=== PATIENT | male | born 1995 | race Caucasian/White ===

== ENCOUNTER 2024-11-29 11:43 | Emergency (ER) | payer OTHER, SELFPAY ==
[2024-11-29 11:47] VITALS: BP 128/77; PULSE 87; TEMP 36.9; O2SAT 96; BMI 24.5
--- NOTE | 2024-11-29 12:58 | ED_ITS ---
HPI HPI - General Adult General Chief complaint: Urogenital-Male Stated complaint: URGENTILE MALE DISCOMFORT , BLEEDING Time Seen by Provider: 11/29/24 11:52 Source: patient Mode of arrival: walk-in History of Present Illness HPI narrative: The patient is a 29-year-old male who is coming to the ER after he observed bleeding after having an erection almost within the last hour, the patient mentioned that he recently was started by his urologist on Tadafil daily 5 mg The patient bleeding was controlled he does not have any pain at the moment and he also does not have any erection at the moment Related Data Allergies Allergy/AdvReac Type Severity Reaction Status Date / Time acetaminophen Allergy Severe gilbert Verified 11/29/24 11:50 syndrome Opioid HPI Opioid Management Most Recent Opioid Data: Last Pain Scale 2 11/29/24 12:03 11/29/24 Review of Systems ROS Status of ROS 10 or more systems reviewed and unremark able except as noted in history and below PFSH PFSH Social History Little interest or pleasure in doing things: not at all Feeling down, depressed, or hopeless: not at all Exam Narrative Exam Narrative: Nurses notes and vital signs reviewed and patient is not hypoxic. General: Well-appearing and in no apparent distress. Skin: Warm, dry, no pallor noted. No rash. Head: Normocephalic, atraumatic. Neck: Supple, non-tender Penile examination was done with the caring nurse as lead auditor: The patient have a small abrasion at the glans penis, that is showing bleeding controlled with mild pressure, there is no erection and there is another abrasion just below that and the patient urethra is intact The abrasion is superficial not deep not exposing the underlying structures and no dehiscence Constitutional Vital Signs, click to edit/add: Last Vital Signs Temp 98.4 F 11/29/24 11:47 Pulse 87 11/29/24 11:47 Resp 18 11/29/24 11:47 BP 128/77 11/29/24 11:47 Pulse Ox 96 11/29/24 11:47 Course Vital Signs Vital signs: Vital Signs Temperature 98.4 F 11/29/24 11:47 Pulse Rate 87 11/29/24 11:47 Respiratory Rate 18 11/29/24 11:47 Blood Pressure 128/77 11/29/24 11:47 Pulse Oximetry 96 11/29/24 11:47 Temperature 98.4 F 11/29/24 11:47 Pulse Rate 87 11/29/24 11:47 Respiratory Rate 18 11/29/24 11:47 Blood Pressure 128/77 11/29/24 11:47 Pulse Oximetry 96 11/29/24 11:47 Medical Decision Making MDM Narrative Medical decision making narrative: I spoke with the urologist on-call Dr. Nguyen and discussed the case with her she agree right now the patient is to stop taking his Tadafil daily and start taking only as needed from normal He is also to abstain from sexual activity for the next 2 weeks Just keep pressure applied to the area The patient to follow-up with urology within the week for further evaluation management The patient is to follow up with primary care physician in next 2-3 days or to return to the emergency department should any of the signs or symptoms worsen or new symptoms develop. The patient agrees with the following Diagnosis and Treatment plan and the patient will be discharged home. Discharge Plan Discharge Chief Complaint: Urogenital-Male Clinical Impression: Abrasion of penis Patient Disposition: Home, Self-Care Time of Disposition Decision: 12:32 Condition: Good Print Language: Swedish Instructions: Abrasion (ED) Additional Instructions: please abstain from sexual activity for 2 weeks and dont take radafil except for PRN in future Referrals: SHIN GOMEZ [Primary Care Provider] - 1 week Discharge Date/Time: 11/29/24 12:50
== END 2024-11-29 12:50 | disposition home or self-care (01) ==
PROVIDERS: Emergency Provider Emergency Medicine; PCP Internal Medicine
DX: S30.812A Abrasion of penis, initial encounter (principal); X58.XXXA Exposure to other specified factors, initial encounter
CPT/HCPCS: 99281

== ENCOUNTER 2025-06-23 08:12 | Outpatient (OUT) | payer OTHER, SELFPAY ==
--- NOTE | 2025-06-23 08:18 | US_ITS ---
The [address] [address] Patient Name: OBED PALMER MRN: [id number] date: 1995 Sex: M Assigned Patient Location: Current Patient Location: Accession/Order Number: [id number] Exam Date: 06/23/2025 08:33 Report Date: 06/23/2025 09:29 At the request of: SABRINA CHA MD Procedure: US scrotum SCROTAL ULTRASOUND WITH DUPLEX IMAGING CLINICAL DATA: Spermatocele, varicocele COMPARISON: None The right testis measures 4.5 x 1.7 x 3.1 cm. The left testis measures 4.8 x 2.0 x 2.5 cm. There is normal echogenicity. No intratesticular masses are identified. There is documentation of bilateral duplex and color Doppler testicular blood flow. The epididymal heads are similar in size. There is a cyst at the right epididymal head measuring 13 x 17 x 18 mm. There are mildly prominent vessels lateral to the testis on each side with increased blood flow with Valsalva suggesting possible varicoceles. There is a tiny right hydrocele. US/US scrotum IMPRESSION: NO INTRATESTICULAR MASS OR TORSION. RIGHT EPIDIDYMAL CYST. POTENTIAL BILATERAL VARICOCELES. Impression dictated by: Noris Mena M.D. 06/23/2025 9:29 AM Dictation Location: [place] [address] Electronically authenticated by: [id number] Y Date: 06/23/2025 09:29
--- OUTSIDE RECORDS SUMMARY | 2025-06-23 08:20 | XMS_ITS | CCD ---
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 08/02/2022 Recorded SARS-CoV-2 (COVID-19) mRNA-1273 vaccine 02/15/2021 Recorded 2024-11-24: TPVALL SARS-CoV-2 (COVID-19) mRNA-1273 vaccine 01/18/2021 Recorded 2024-11-24: TPV17 influenza virus vaccine, inactivated 08/04/2020 Recorded Normal [facility] Comment on above: Result Comment: Elec tronically Signed By: ANGELINA WARE PA-C\.br\Date and Time Signed: 02/23/25 10:17 EDT Ambulatory Visit Summaryon 0 12-09-2024 Ambulatory Visit Summary Ambulatory Visit Summary EMILIA ROACH :1995 Visit Date:12/09/2024 Ambulatory Visit Instructions Your Diagnosis ED (erectile dysfunction) Your Care Team Attending Physician - ANGELINA WARE PA-C Primary Care Physician - SHIN GOMEZ MD This Is Your Medications List tadalafil (Cialis 2.5 mg oral tablet) Procedures Performed None. Discharge Vitals Temperature (Temporal Artery) 37 ???C Heart Rate (Peripheral) 75 Respiratory Rate 16 Blood Pressure 124/77 Height 180 cm Height 71 in Weight 80 kg Weight 176.37 lb BMI 24.69 What to do next Scheduled Follow-Up Appointments Sunday 9:40 AM EDT With: ANGELINA WARE PA-C Where: [facility] [address] [place] [address]- You Need to Schedule the Following Appointments Follow Up with JEANIE BARTH, HERMILO VENTURA When: In 3 months Where: [address] [place] [address] Medications What How Much When Instructions Changed tadalafil (Cialis 2.5 mg oral tablet) 1 Tablets By Mouth Every 72 hours Duration: 30 Days Pickup at [facility] #[id number] Pharmacy Information [facility] #[id number]: [address], [place] [id number] [phone] Allergies acetaminophen (Jaundice due to ABO isoimmunization of the ) Problems Ongoing - Any problem that you are currently receiving treatment for. 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 Please share your experience with us by completing your survey. We appreciate your feedback and thank you for choosing us for your care. Education Materials Erectile Dysfunction Erectile dysfunction (ED) is the inability to get or keep an erection in order to have sexual intercourse. ED is considered a symptom of an underlying disorder and is not considered a disease. ED may include: ??? Inability to get an erection. ??? Lack of enough hardness of the erection to allow penetration. ??? Loss of erection before sex is finished. What are the causes? This condition may be caused by: ??? Physical causes, such as: ? Artery problems. This may include heart disease, high blood pressure, atherosclerosis, and diabetes. ? Hormonal problems, such as low testosterone. ? Obesity. ? Nerve problems. This may include back or pelvic injuries, multiple sclerosis, Parkinson's disease, spinal cord injury, and stroke. ??? Certain medicines, such as: ? Pain relievers. ? Antidepressants. ? Blood pressure medicines and water pills (diuretics). ? Cancer medicines. ? Antihistamines. ? Muscle relaxants. ??? Lifestyle factors, such as: ? Use of drugs such as marijuana, cocaine, or opioids. ? Excessive use of alcohol. ? Smoking. ? Lack of physical activity or exercise. ??? Psychological causes, such as: ? Anxiety or stress. ? Sadness or depression. ? Exhaustion. ? Fear about sexual performance. ? Guilt. What are the signs or symptoms? Symptoms of this condition include: ??? Inability to get an erection. ??? Lack of enough hardness of the erection to allow penetration. ??? Loss of the erection before sex is finished. ??? Sometimes having normal erections, but with frequent unsatisfactory episodes. ??? Low sexual satisfaction in either partner due to erection problems. ??? A curved penis occurring with erection. The curve may cause pain, or the penis may be too curved to allow for intercourse. ??? Never having nighttime or morning erections. How is this diagnosed? This condition is often diagnosed by: ??? Performing a physical exam to find other diseases or specific problems with the penis. ??? Asking you detailed questions about the problem. ??? Doing tests, such as: ? Blood tests to check for diabetes mellitus or high cholesterol, or to measure hormone levels. ? Other tests to check for underlying health conditions. ? An ultrasound exam to check for scarring. ? A test to check blood flow to the penis. ??? Doing a sleep study at home to measure nighttime erections. How is this treated? This condition may be treated by: ??? Medicines, such as: ? Medicine taken by mouth to help you achieve an erection (oral medicine). ? Hormone replacement therapy to replace low testosterone levels. ? Medicine that is injected into the penis. Your health care provider may instruct you how to give yourself these injections at home. ? Medicine that is delivered with a short applicator tube. The tube is inserted into the opening at the tip of the penis, which is the opening of the urethra. A tiny pellet of medicine is put in the urethra. The pellet (more content not included)... Normal [facility] Urology Office/Clinic Noteon 12-09-2024 Urology Office/Clinic Note Urology Office/Clinic Note Chief Complaint F/u to [facility] ED visit for bleeding with erection HPI Staff 29yr old male pt here for ER f/u. Pt seen in ER on 11/29/24 for bleeding after erection. Pt had small abrasion at glans penis. Previous Dx: ED *was prescribed Cialis 5mg qd at last OV - take only PRN after ER visit Dysuria: denies Incomplete bladder emptying: not at all Hematuria: pt states that he got a small tear during intercourse and had visible blood on his penis but not from his urine Frequency: less than 1 in 5x Urgency: denies Nocturia: 1x Stream: denies weak, straining and intermittency Leaking: denies Post void dripping: denies Wearing pads/ Depends: denies Urge incontinence: denies Stress incontinence: denies Incontinence without Sensory Awareness: denies Abdominal pain: denies Flank pain: denies Sexual complaints: denies Review of Systems PHQ Score Initial Depression Screen Score: 0 SCORE Physical Exam Vitals & Measurements T: 37 ???C(Temporal Artery) HR: 75(Peripheral) RR: 16 BP: 124/77 HT: 71 in HT: 180 cm WT: 80 kg WT: 176.37 lb BMI: 24.69 Assessment/Plan 1. ED (erectile dysfunction) (N52.9: Male erectile dysfunction, unspecified) Last seen IO 11/24/24. I started Cialis 5mg daily. After a few doses he was able to achieve erection on his own. After a couple more doses he was able to achieve erection with partner and have intercourse. However he injured his penis, sustaining a couple abrasions which wouldn't stop bleeding. Went to [facility] ER 11/29/24. Resolved w holding pressure. Pt has not resumed Cialis since ER. Says area is about 90% healed. Prefers not to go to PRN dosing, like the option for spontaneity w regular dosing. Will decrease dose and timing. -Decrease Cialis to 2.5mg q72hrs. -Don't resume intercourse until injuries completely healed. Ordered: E&M of Est. 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 Medications Cialis 2.5 mg oral tablet, 2.5 mg= 1 tab(s), Oral, q72hr, 2 refills Allergies acetaminophen (Jaundice due to ABO isoimmunization of the ) Social History Tobacco Former smoker, quit more than 30 days ago Tobacco Use:. Never Smokeless Tobacco Use:. Cigarettes, Household tobacco concerns: No. Yes, 12/09/2024 Family History Alcoholism: Grandparent. Lung cancer: Grandparent. Pancreatic cancer: Uncle. Psychiatric behavioural disability: Mother, Father and Uncle. Immunizations Vaccine Date Status Comments influenza virus vaccine, inactivated 07/25/2024 Recorded influenza virus vaccine, inactivated 08/02/2023 Recorded influenza virus vaccine, inactivated 08/02/2022 Recorded SARS-CoV-2 (COVID-19) mRNA-1273 vaccine 02/15/2021 Recorded 2024-11-24: TPVALL SARS-CoV-2 (COVID-19) mRNA-1273 vaccine 01/18/2021 Recorded 2024-11-24: TPV17 influenza virus vaccine, inactivated 08/04/2020 Recorded Lab Results Ambulatory Point of Care Results Bilirubin Urine Dipstick: Negative (12/09/24 11:00:00) Blood Urine Dipstick: Negative (12/09/24 11:00:00) Glucose Urine Dipstick: Negative (12/09/24 11:00:00) Ketones Urine Dipstick: Negative (12/09/24 11:00:00) Leukocytes Urine Dipstick: Negative (12/09/24 11:00:00) Nitrite Urine Dipstick: Negative (12/09/24 11:00:00) Protein Urine Dipstick: Negative (12/09/24 11:00:00) Specific [place] Urine Dipstick: 1.025 (12/09/24 11:00:00) Urine Appearance Urine Dipstick: Clear (12/09/24 11:00:00) Urine Color Urine Dipstick: Yellow (12/09/24 11:00:00) Urobilinogen Urine Dipstick: Normal 0.2-1 EU/dl (12/09/24 11:00:00) pH Urine Dipstick: 5.5 (12/09/24 11:00:00) Normal [facility] Comment on above: Result Comment: Elec tronically Signed By: ANGELINA WARE PA-C\Date and Time Signed: 12/09/24 12:03 EST Urology Office/Clinic Noteon 11-24-2024 Urology Office/Clinic Note Urology Office/Clinic Note Chief Complaint ED follow up HPI Staff 29 year old male patient here for follow up to ED. Pt is not taking any ED medication. FARAZ: 8, IPSS: 3 Dysuria: denies Incomplete bladder emptying: denies Hematuria: denies Frequency: depends on intake, but usually urinates 2-3 hours. Urgency: denies Nocturia: once a night Stream: denies hesitancy, denies weak stream Leaking: denies Post void dripping: denies Wearing pads/ Depends: denies Urge incontinence: denies Stress incontinence: denies Incontinence without Sensory Awareness: denies Abdominal pain: denies Flank pain: denies Sexual complaints: _ Review of Systems PHQ Score Initial Depression Screen Score: 0 SCORE Physical Exam Vitals & Measurements HR: 71(Peripheral) RR: 16 BP: 115/75 HT: 71 in HT: 180 cm WT: 80 kg WT: 176.37 lb BMI: 24.69 Assessment/Plan 1. ED (erectile dysfunction) (N52.9: Male erectile dysfunction, unspecified) Tried penile ring several times without satisfactory results. FARAZ 8 (8). Today we discussed all treatment options for ED including oral medications, erectile pumps, intracorporeal injection, and surgical options. We reviewed all of his contributing factors including those that are within his control to change and those which are not. Pt has decided that he would like to try oral medications - risks/benefits, side effects,interactions, and proper use discussed -Cialis 5mg daily. If working really well, can try reducing to QOD dosing. -F/u 3 mos Ordered: E&M of Est. Patient Moderate 30-39 Min 26988 Urnls Dip Stick Auto w/o Microscopy POC 07540 Orders: tadalafil, 5 mg = 1 tab(s), Oral, Daily, X 30 day(s), # 30 tab(s), Refills(s) 11, Pharmacy: [facility] #[id number], 180, cm, 11/24/24 12:10:00 EST, Height/Length Dosing, 80, kg, 11/24/24 12:10:00 EST, Weight Dosing Follow-up With When Contact Information JEANIE BARTH, ANGELINA Harris, URL In 3 months [address] [place] 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 Medications Cialis 5 mg oral tablet, 5 mg= 1 tab(s), Oral, Daily, 11 refills Allergies acetaminophen (Jaundice due to ABO isoimmunization of the ) Social History Tobacco Former smoker, quit more than 30 days ago Tobacco Use:. Never Smokeless Tobacco Use:. Cigarettes, Household tobacco concerns: No. Yes, 11/24/2024 Family History Alcoholism: Grandparent. Lung cancer: Grandparent. Pancreatic cancer: Uncle. Psychiatric behavioural disability: Mother, Father and Uncle. Immunizations Vaccine Date Status Comments influenza virus vaccine, inactivated 07/25/2024 Recorded influenza virus vaccine, inactivated 08/02/2023 Recorded influenza virus vaccine, inactivated 08/02/2022 Recorded SARS-CoV-2 (COVID-19) mRNA-1273 vaccine 02/15/2021 Recorded 2024-11-24: TPVALL SARS-CoV-2 (COVID-19) mRNA-1273 vaccine 01/18/2021 Recorded 2024-11-24: TPV17 influenza virus vaccine, inactivated 08/04/2020 Recorded Lab Results Ambulatory Point of Care Results Bilirubin Urine Dipstick: Negative (11/24/24 12:21:00) Blood Urine Dipstick: Negative (11/24/24 12:21:00) Glucose Urine Dipstick: Negative (11/24/24 12:21:00) Leukocytes Urine Dipstick: Negative (11/24/24 12:21:00) Nitrite Urine Dipstick: Negative (11/24/24 12:21:00) Protein Urine Dipstick: Trace (11/24/24 12:21:00) Specific [place] Urine Dipstick: 1.020 (11/24/24 12:21:00) Urine Appearance Urine Dipstick: Clear (11/24/24 12:21:00) Urine Color Urine Dipstick: Yellow (11/24/24 12:21:00) Urobilinogen Urine Dipstick: Normal 0.2-1 EU/dl (11/24/24 12:21:00) pH Urine Dipstick: 7 (11/24/24 12:21:00) Normal [facility] Comment on above: Result Comment: Elec tronically Signed By: ANGELINA WARE PA-Cbr\Date and Time Signed: 11/24/24 12:42 EST Physical Therapy Noteon Physical Therapy Note [id number]#1.[address] [facility] [place] [facility] Provider Orders [id number]#1.0 0[facility] Coding Summaryon 03-25-2021 Coding Summary HTMLBase 64 FbellepvNHy8vEr+PGhlYW Q+UX8OELWuW26xjZQutB1H N0bKCJ1UWGSABLMAYF9WCO 3sxJN3QYhxL8KhwdMl CsmrjQLbPE41VUd0KUS5sS ioUNdqaR3hhECzB6x4QlMc IE06vX33PQreBNByQlU4Ch ZpbjsgbWFy E7xkAnWguKThGze+PHRhYm xlIHdpZHRoPScxMDAlJyBz mLkbJT9yCa0mPPMmTWOhtK xhcHNlOiBj r3vcDBGkTLivBG2mnClaZ8 UgwFE8DSBkv3i7Wc51iIW+ JEPcQQZ3mYihARxjc562Pv Eau4klPTI8 vZYcOIpjGHP1P02em8P0MW RfJSBsDJH0uMO0fF0jnHhq prkfE0DvvONbEsG4SVI2tY QgeM6oiVgf vqwszC0xNgi+L47ECX1PQD OTZQ5GVce5Z9TrAkmtgHP+ XE30QAFdTB72zQWebSDau4 dzfAf4JxDo RSEuTKE4jEdnHVvdb7MwSS QkW35apRPdu9I6AOOdzQhh kZKhLbWsdDF0aD0uIGldke uik3usfvnp Ixnxe7azes02nM15W29gCB hiELTwEEA2CHFxOPHbjXdt rb7zuM0sPl2+UMwqs5hxj8 fsgNl4GqHa LHIvjxScmLtlCTP7t5SzVe 40X7UvcIiug6YcIuy2xu04 bEFay0V1oOQ2XHltYSWjpN 8bSRvxMnE6 ZCBqYiMvpC48iBLrCWwlXy 8hnVkfqQzkWO4dBBJgebyn ESLszO8gBZFjdPHcfEswRK 4wNTBpbjtm g292WeIlTSZ2XRLgwRYmK8 DdqZ4wNmEoAARvLWGuR1Pv aJQiBYoaF917BFwmKyU1CX MhpxHnH6Oe CPWycFirNfU6l1Z1Km1Of6 RcxmpbSLL9JRvcXNT9HtN6 XtXqZuW9Q3GbYvs2IBNxbS enRO3mV1Kx YNArraaxlxtyoMV6SCIyNM CyyR63yOSdAGyaLa9se4G4 t255BZUhUSZduE83Qr0tuW ogMTBwdCBU uF0jlnpdz4vbffbiKqFvOD CfMMi7CLz4MYTklIwdZeCg NVK1ShJ2TYV5vDGrcZ4msH cljrjhwL8n Oyc+X55ctN5cEAG2SBZ7ja aqOJLjupDnWG51UD26S7Pz PjwvdGFibGU+PGRpdiBzdH azPV0yUyLo q0pne5ZlGJhiR8GtLZQyTE sdSzu4AQQuLSQ1eJW7kU9c TVXxRRtsm2G5lQI0N1Lxae Yyjc1ys7ag MGQrKObuD13ccPTxn5M5HZ FudBJ8DYXpzZqoZoWmkW07 Oyc+VFYlrCkhi3UuNggdz5 wgl2rylGy6 PhNtENTwqbPasPahVCR0l8 HbNz76M63tIIimCFLmMUJe IOZlIOBtuAtgrc4mdB6wCx 8+PGNvbCB3 pUQ8iA8sXZQpWbP9NYfqL7 35IgFghYKtKoqwm2tvo8ao pIb2CbRsGFSjqyJmrNtzUN A0t7YfXl68 H62xVLpeHZFbWHUqXXDoBH UpqOzzcf1mxI8kDb8+PC9j e5atet35jB82zVB+PHRkIH Q1uKarDYmh ERSnmW8hUIrpEzW6VHRlFh KbjX35oUUuWDtaJv6ecFoa pFkqFL0tDBDvzgwwp906Uk Pfj2cxKYOl lNHzJZeuPCI6C18as6L2BL HpNLEpCCR7fYM8zF9tvVcf bjogbGVmdDsgdmVydGljYW cgAPysO758 IHRvcDsnPlBhdGllbnQgTm AoAMg9O5QoTvx1GCGpsDiv VX0akSLzYTitMp3wlFapzJ ssKJ8yCGLn vyyji111RrRas6loOGZtnG MaZVddKIJ6R79dj1M7IUIa HTJdLUS0jWK4dD1exLiuyh ogbGVmdDsg ucMswHzbCGngQMhnE339YD RvcDsnPkJpcnRoIERhdGU6 WZ96FS39zTRwt8A3cJB1Z2 BhZGRpbmct cwcssRS0IRYuYKGhhS70Ks 5nfJlfFs1vDPUsXRI8PZWo wBAeM7ZzdY0gYyBhKUEyKE ClT6ElhCHy VYbtG961CVglBiR2PYCcjw EzZ0YnOFRkcYpfJfE5c9O8 Gd2PW6E9HT67VY21pDVgj7 F9rWL5G1Gu WXAwedphjdbauGO6JWXmTN ErjR84Zg5waVtyUg6mYQTw FYG2KVWjmZXlU6LzqL9lTx AjMDAwMDAw M1VmnLGpEElmY703PNghLc F9BMVfoiRpZ6QlOLCfwAyj NrQ3z0B5My8YNZj7UQ56LL 25vVPbl6V3 dPR6J6QqGZWodhnombkfzV Y0GERpLMZewM73Wl8noFej Wm0oGAYtJDM7RDLwzNBaF0 NbfF0dZaMl MDLlMNXaI0DrbOHeOSkiO9 07WKzzGuH8WKGgaeEuJ3Fu DMIisTflOlF7c9C4Pl9OSG HvYO21TRC1 fFI1OA75JR92Z9EtKigijB FibGU+PHRhYmxlIHdpZHRo CCixXEQwHmImaWdoMK1zIl 9yZGVyLWNv qChssYQtQtYdc5euSCAaJE pbEL1rnUsjP7HpmDC4VCYy y7p4Ov31I78mD0JeiLC+PG ZxuXD3vTL2 fI6oLgNnWmR3NExlG058Kt UsjIBpJynls2tgr3humDo3 OfV8NBQblmEdeUegYQX3o1 WfKg11Y56w IHdpZHRoPSIxNSUiIHZhbG qmfk2dmG6mBs8+PGNvbCB3 kWG1bR4rDkQvRcC7MNupJ5 49InRvcCIv Pieca2xxw4mjeGu0LeFeWY VkkvWztZctIIW0f9ZuCh93 K3TahFmvz0JjUxo8sc30iA Xoe0F5mBG2 X3YpFNSivmrlbVSvxGiiNI 9pVNSavlhsYSDeeO1lUFYr V5z9SdJfKvG2DCdbU9Gyvm P0XJDogHQt BUlsJBS5J11ng5P3SNNsEP WpKDJ6eUB2wO6dhKsvdcvh bGVmdDsgdmVydGljYWwtYW ukG218NLUv qFrmNETctO7qYXXgfUMgkO rxBB5vXBLvcivbOy4PRXnW TCwgQVNIRSBIQVpFTjwvdG Q+PHRkIHN0 rLsmICyvNVXepG7hHFWzV0 u2FhSfBqJ5BDhjX8MuTAPv tffgFx98kS6nMgTgCgF0MT txZ2UophM0 MEEphXQyZTqtWMB4V27dy7 K8OQYxTNDmPAB6hLY0gJ0z bGlnbjogbGVmdDsgdmVydG ljYWwtYWxp M715XZEpbRcdBbW6LrR9Wy B1LEH5D4KsYfu8HFRgvMtk ZC7dxWBhLRfsAw3epGkcjB tdBO8eDCRv nglpUCKulM3hUXJlzTUafI msWM8qBDFwyaoxa399DqRo GJC1KHWwnZZiI9XoyJ4iCs AjMDAwMDAw N9TrjTScPLcaE543FFtgZj R9QNAmsfKrN2OgLMJkaFvs JhP2o7N3Uq2rVFAETBZpth wvdGQ+PHRk OCG0xYptNGgeUITqeK8jFC CfK8n9KjMaJyF8HNhsJ7Ut ARFmwdcoRz84bL5xCcKaOr T7DPblB5Mz ykD5RXZbjKNuJHewRZW5H9 5ux8W5VTXnOEMfDQE1iHY6 lK9hmMhzjhzxuVWjoOydkh VydGljYWwt SAzpF231QZAniAifPb0OFF A3P9YgRpp0STWrbDokKL8k xZPlGEuhOh4iiCkwoWtzXQ 4wNTBpbjtw LSJcqB9qFVXjdJRkvMpbVH 3nHDZhjgrxb444HgPeFJC3 MGQjoRPpL7GplM6bEgSzKY FrHYEjV6Gn zRQnQXdeC865HLgjVkG0CB AelgYwB8MuXTTyvTbmBeV5 b2Q5Bo5PHNA8ptOipwqeD0 G7lBU1eBPr dDwvdGQ+PI07ty84Z7RkCm ouWdj7LZIhGRU8dLO5tM7v ZMSfYZpit3I2mIT6W2Fysj Ijcd2tf2hd NPRoFVmvC74khEYrz3V0AO RfjFU6CXBphOruQhHktK17 Oyc+VCWjiHjxj8IwUhulf4 rtp8eapPw2 AjMbQZQobcGgyYjaGWQ3d8 TmBu18H81mKJirGMIrKDWu NPYbNHCkhEhbgv9liP8eYb 8+PGNvbCB3 bLT2hW2mFnVqIhY1XBkdX4 39LiSagYNmPwfrb9uig1lc tMo4XrVmQUXzloFkuZzaAZ I2t1PmUw53 Z2TvsLvyu0BlFkd9ac85dA Tlb6P2wNU3W8BeCVAxopai jOBbhBzaWP0hWVDcqmoeTQ DqiH0zMVVr A0u0GnVdChQ3HLguC6Jnbt C7QGYgfJThYCCbuAKUiW7f oveid2yvfehcAjFxJXSoPB c3ALg2QKRt kAmbTjGsVIN0ZuI2BBN1bS HtbX1ooUdxxkepdG6bBeq+ OEq5i0zqsYMwRN6cdNW6AS 02RZ07kCGn l5C9zNR8L5OsCRXqmxysmt ocpWU1FFFaEBVydA10Dz5j zMeoUu7aJKVjXEO3KOGqsR YqM6NiqO8c LcUyMBWuMJCjM1TbwFVbJT cuB870DIxzUaI1PQIzwrRa T7RaYWEhiJvuRiF9s0Z6Nj 7RPA82KU93 HA90dZWaj9O1gUP0P9ErRB XtxoimddvxsEK3YFMbKXWc jI32Ut1ltYlbDs3rKIHwXL L3TDArnCPo N7UcaM9mSoOjGXBpPBGuK9 RjvWFoKHvwH914PRznWzW4 RNIfqbWzM0DvCVFjrLmmJu I2v7K4Qb7Q Ji89SI11ZA47xBMnf4O9lT W0W2AqPKVkqsdnwuraeGW2 QLQdOYVpbY84Nw3maXugAi 6iVSRqOSA9 UCMecHUkG6GocG9iLuHlIS GvHNBpW2OrtKPsZCzxZ360 EShaWgW1SBXupcZyV8SqFA FsaWduOiB0 m7C2Kk0WRKyqlbe0H5JkHi wvdHI+VH34EUSvSF60nLNz rXCxb4yunVa0GzOoSFTpDU J6dWovGMeh b3J (more content not included)... [facility] Provider [place] 03-22-2021 Provider Orders [id number]#1.[address] [facility] [place] 02-14-2021 Provider Orders [id number] 0[facility] Vital Signs Date Time Vital Sign Value Performing Clinician Faci lity 12-09-2024 10:55-0500 Blood Pressure Location ANGELINA JEANIE [facility] 12-09-2024 10:55-0500 Body temperature 98.6 [degF] ANGELINA JEANIE [facility] 12-09-2024 10:55-0500 Diastolic blood pressure 77 mm[Hg] ANGELINA JEANIE [facility] 12-09-2024 10:55-0500 Heart rate 75 /min ANGELINA JEANIE [facility] 12-09-2024 10:55-0500 Respiratory rate 16 /min ANGELINA JEANIE [facility] 12-09-2024 10:55-0500 Systolic blood pressure 124 mm[Hg] ANGELINA JEANIE [facility] 11-24-2024 12:07-0500 Diastolic blood pressure 75 mm[Hg] ANGELINA JEANIE [facility] 11-24-2024 12:07-0500 Heart rate 71 /min ANGELINA JEANIE [facility] 11-24-2024 12:07-0500 Respiratory rate 16 /min ANGELINA JEANIE [facility] 11-24-2024 12:07-0500 Systolic blood pressure 115 mm[Hg] ANGELINA JEANIE [facility] 06-19-2024 10:59-0400 Blood Pressure Location ANGELINA JEANIE [facility] 06-19-2024 10:59-0400 Body temperature 98.6 [degF] ANGELINA JEANIE [facility] 06-19-2024 10:59-0400 Diastolic blood pressure 84 mm[Hg] ANGELINA WARE [facility] 06-19-2024 10:59-0400 Heart rate 65 /min ANGELINA WARE [facility] 06-19-2024 10:59-0400 Respiratory rate 16 /min ANGELINA WARE [facility] 06-19-2024 10:59-0400 Systolic blood pressure 115 mm[Hg] ANGELINA WARE [facility] Encounters Encounter Date Encounter Type Care Provider Facility Start: 02-23-2026 ambulatory ANGELINA WARE Facili ty:[facility] Start: 12-14-2025 ambulatory Timothy HADDAD Facili ty:[facility] Start: 06-19-2025 End: 06-19-2025 ambulatory Timothy HADDAD Facility:[facility] Start: 06-19-2025 End: 06-19-2025 Patient encounter procedure Timothy Galina HADDAD [facility] Start: 06-15-2025 End: 06-15-2025 ambulatory Timothy HADDAD Facility:[facility] Start: 06-15-2025 End: 06-15-2025 Patient encounter procedure Timothy HADDAD [facility] Start: 06-05-2025 End: 06-05-2025 ambulatory [facility] Start: 05-08-2025 End: 05-08-2025 ambulatory [facility] Start: 04-20-2025 ambulatory LUANNE Burns [facility] Start: 04-20-2025 End: 04-20-2025 ambulatory NAHEED Angel [facility] Start: 04-10-2025 End: 04-10-2025 ambulatory NAHEED Angel [facility] Start: 02-27-2025 End: 02-27-2025 ambulatory NAHEED Angel [facility] Start: 02-23-2025 End: 02-23-2025 ambulatory ANGELINA E JEANIE Facility:[facility] Start: 01-30-2025 End: 01-30-2025 ambulatory NAHEED Angel [facility] Start: 01-23-2025 End: 01-23-2025 Emergency department patient visit [facility] Start: 01-02-2025 End: 01-02-2025 ambulatory NAHEED Angel [facility] [place] Start: 12-09-2024 End: 12-09-2024 ambulatory ANGELINA WARE Facility:[facility] Start: 12-09-2024 End: 12-09-2024 Patient encounter procedure ANGELINA E JEANIE [facility] Start: 11-28-2024 End: 11-28-2024 ambulatory NAHEED Angel [facility] [place] Start: 11-24-2024 End: 11-24-2024 ambulatory ANGELINA SIMONRY Facility:[facility] Start: 11-24-2024 End: 11-24-2024 Patient encounter procedure ANGELINA E JEANIE [facility] Start: 10-31-2024 End: 10-31-2024 ambulatory NAHEED Angel [facility] [place] Start: 10-01-2024 End: 10-01-2024 ambulatory NAHEED Angel [facility] [place] Start: 09-08-2024 End: 09-08-2024 ambulatory NAHEED W [facility] [place] Start: 08-20-2024 End: 08-20-2024 Telephone encounter Becca Somers RN [facility] Call [facility] er Comment on above: Cancel Appointment Start: 08-04-2024 End: 08-04-2024 ambulatory NAHEED Angel [facility] [place] Start: 07-21-2024 End: 07-21-2024 ambulatory NAHEED Angel [facility] [place] Start: 07-07-2024 End: 07-07-2024 ambulatory NAHEED Angel [facility] [place] Start: 06-25-2024 End: 06-25-2024 ambulatory NAHEED Angel [facility] [place] Start: 06-19-2024 End: 06-19-2024 Patient encounter procedure ANGELINA WARE [facility] Start: 04-23-2024 End: 04-23-2024 ambulatory SHIN GOMEZ Not Available Procedures Date Procedure Procedure Detail Performing Clinician Start: 06-25-2024 Follow-up visit Follow-up NAHEED RAMIRES None (qualifier value) [facility]HER WARE Plan of Treatment Date Care Activity Detail Author Start: 12-03-2024 Tobacco Screening Tobacco Screening [facility] Start: 09-17-2024 Adult BMI Screening Adult BMI Screen ing [facility] Start: 06-22-2024 COVID-19 Vaccine ( season) COVID-19 Vaccine ( season) [facility] Start: 2014 DTaP,Tdap and Td Vaccines (1 - Tdap) DTaP,Tdap and Td Vaccines (1 - Tdap) [facility] Start: 2007 Depression Screening Depression Scre ening [facility] Immunizations Immunization Date Immunization Notes Care Provider Makeda rivero 07-25-2024 influenza virus vaccine, unspecified formulation ANGELINA WARE [facility] 08-02-2023 influenza virus vaccine, unspecified formulation ANGELINA WARE [facility] 08-02-2022 influenza virus vaccine, unspecified formulation ANGELINA WARE [facility] 02-15-2021 COVID-19, mRNA, LNP- S, PF, 100mcg/0.5mL Dose Becca Somers RN [facility] Comment on above: Result Comment: 2024: TPVALL 01-18-2021 COVID-19, mRNA, LNP- S, PF, 100mcg/0.5mL Dose Becca Somers RN [facility] Comment on above: Result Comment: 2024: [id number] 08-04-2020 influenza virus vaccine, unspecified formulation ANGELINA WARE [facility] Payers Date Payer Category Payer Worker's Compensation [id number] 2023 Private Health Insurance [facility] [id number] 2023 Unknown [id number] 2023 Worker's Comp Other Managed Care [employer] [id number] 2020 Commercial Managed [facility] [place] [employer] Member Subscriber Plan / Payer (Effective 2020-Present) Name: Emilia Roach Relation to Subscriber: Self Name: Emilia Roach Payer ID: Not on file Type: Not on file Address: [place] [id number] 2020 Unknown [id number] 1995 Unknown [id number] 2.16840.1.628842.3.579 .2.9 1995 Unknown [id number] 2.16840.1.108039.3.579 .2.1285 1995 Unknown [id number] 2.0.1.723471.3.579 .2.1285 1995 Unknown [id number] 2.16840.1.702092.3.579 .2.1285 1995 Unknown [id number] 2.16840.1.461597.3.579 .2.1285 1995 Unknown [id number] 2.16840.1.336690.3.579 .2.1285 1995 Unknown [id number] 2.0.1.040746.3.579 .2.1285 1995 Unknown [id number] 2.16840.1.345376.3.579 .2.1285 1995 Unknown [id number] 2.16840.1.859770.3.579 .2.1285 1995 Unknown [id number] 2.16840.1.683799.3.579 .2.1285 1995 Unknown [id number] 2.16840.1.108444.3.579 .2.1285 1995 Unknown [id number] 2.16.840.1.036504.3.579 .2.6 1995 Unknown [id number] 2.16.840.1.115177.3.579 .2.1285 1995 Unknown [id number] 2.16.840.1.732498.3.579 .2.1285 1995 Unknown [id number] 2.16.840.1.803961.3.579 .2.1285 1995 Unknown [id number] 2.16.840.1.513954.3.579 .2.1285 1995 Unknown [id number] 2.16.840.1.810578.3.579 .2.1285 1995 Unknown [id number] 2.16.840.1.074771.3.579 .2.1285 1995 Unknown [id number] 2.16.840.1.650763.3.579 .2. 1995 Unknown [id number] 2.16.840.1.108671.3.579 .2.72 1995 Unknown [id number] 2.16.840.1.267699.3.579 .2. 1995 Unknown [id number] 2.16.840.1.934469.3.579 .2. 1995 Unknown [id number] 2.16.840.1.536429.3.579 .2. 1995 Unknown [id number] 2.16.840.1.549380.3.579 .2. 1995 Unknown [id number] 2.16.840.1.213133.3.579 .2.727 Social History Date Type Detail Facility Start: 06-19-2024 End: 06-19-2025 Tobacco smoking status Ex-smoker (finding) [facility] Tobacco smoking status Never [facility] Start: 11-23-2020 End: 12-03-2023 Sex Assigned At Male [facility] Start: 09-17-2023 Tobacco smoking stat us NHIS Never smoked tobacco [facility] Start: 09-17-2023 Tobacco use and exposure Smoke less tobacco non-user [facility] Start: 12-03-2023 Alcoholic beverage intake Ex-drinker (finding) [facility] Start: 11-23-2020 End: 12-03-2023 History of Social function [facility] Start: 1995 Sex assigned at Male P [facility] Start: 12-04-2019 Sex Male (finding) [facility] Start: 12-12-2022 Gender identity Identifies as male gender (finding) [facility] Sexual Orientation [facility] Functional Status Date Assessment Result Facility 12-09-2024 Functional Status N/A [facility] 11-24-2024 Functional Status N/A [facility] 06-19-2024 Functional Status N/A [facility] Clinical Notes 03-24-2021 to 06-19-2025 Telephone Encounter - Becca Somers RN - 08/20/2024 8:05 AM EDTTelephone Encounter - Becca Somers RN - 08/20/2024 8:05 AM EDT Note Date & Type Note Facility 06-19-2025 Hospital Discharg e instructions Patient Education 06/19/2025 09:01:58 Varicocele Varicocele A varicocele is a swelling of veins in the scrotum. The scrotum is the sac that contains the testicles. Varicoceles can occur on either side of the scrotum, but they are more common on the left side. They occur most often in teenage boys and young men. In most cases, varicoceles are not a serious problem. They are usually small and painless and do not require treatment. Tests may be done to confirm the diagnosis. Treatment may be needed if: A varicocele is large, causes a lot of pain, or causes pain when exercising. Varicoceles are found on both sides of the scrotum. A varicocele causes a decrease in the size of the testicle in a growing adolescent. A varicocele makes it hard to get someone (infertility). What are the causes? This condition is caused by valves in the veins not working properly. Valves in the veins help to return blood from the scrotum and testicles to the heart. If these valves do not work well, blood flows backward and backs up into the veins, which causes the veins to swell. This is similar to what happens when varicose veins form in the leg. What are the signs or symptoms? Most varicoceles do not cause any symptoms. If symptoms do occur, they may include: Swelling on one side of the scrotum. The swelling may be more obvious when you are standing up. A lumpy feeling in the scrotum. A heavy feeling on one side of the scrotum. A dull ache in the scrotum, especially after exercise or prolonged standing or sitting. Slower growth or reduced size of the testicle on the side of the varicocele. This happens in young males. Infertility. This can occur if the testicle does not grow normally or if the condition causes problems with the sperm, such as a low sperm count or sperm that are not able to reach the egg. How is this diagnosed? This condition is diagnosed based on: Your medical history. A physical exam. Your health care provider may check and feel the scrotum area to check for swollen or enlarged veins. An ultrasound. This may be done to confirm the diagnosis and to help rule out other causes of the swelling. How is this treated? Treatment is usually not needed for this condition. If you have any pain, your provider may give you medicine to help relieve it. Your provider may need to do tests to make sure that your varicocele does not cause problems. If further treatment is needed, you may have one of these procedures: Varicocelectomy. This is surgery to tie off the swollen veins so that the flow of blood goes to other veins instead. Embolization. This procedure uses a soft tube (catheter) to place metal coils or other devices to block the veins. This cuts off the blood flow to the swollen veins. Follow these instructions at home: Take chtj-nnm-fwrmgoh and prescription medicines only as told by your provider. Wear supportive underwear. Use an athletic supporter when doing sports activities. Contact a health care provider if: Your pain is increasing. You have redness in the affected area. Your testicle is enlarged, swollen, or painful. You have swelling that does not get better when you are lying down. One of your testicles is smaller than the other. You develop swelling in your legs. Get help right away if: You have difficulty breathing. This symptom may be an emergency. Get help right away. Call 911. Do not wait to see if the symptom will go away. Do not drive yourself to the hospital. This information is not intended to replace advice given to you by your health care provider. Make sure you discuss any questions you have with your health care provider. Document Revised: 07/04/2023 Document Reviewed: 07/04/2023 [employer] Patient Education 2023 [employer]. 06/19/2025 08:43:31 Male Infertility Male Infertility Male infertility refers to a male's inability to get a female (get her to conceive) after a year of having sex regularly without using control. Both males and females can have fertility problems. What are the causes? This condition may be caused by: Problems with sperm. Infertility can result if a male is: ?Not producing enough sperm (low sperm count). ?Not producing enough sperm of normal size and shape (poor sperm morphology). ?Producing sperm that are not able to reach the egg (poor motility). Problems in a man's reproductive organs, such as: ?Enlarged veins (varicoceles), cysts (spermatoceles), or tumors of the testicles. ?Sexual dysfunction, including not being able to have an erection. ?Injury to the testicles. ?Having had a testicle that did not drop to its location in the scrotum (undescended testicle). ?A defect, such as not having the tubes that carry sperm (vas deferens). ?A lack of certain hormones. Certain medical conditions. These may include: ?Diabetes. ?Cancer and cancer treatments, such as chemotherapy or radiation. ?Klinefelter syndrome. This is an inherited genetic disorder. ?Thyroid problems, such as an underactive or overactive thyroid. ?Cystic fibrosis. ?Infections. ?Sexually transmitted diseases. Infertility can be linked to more than one cause. The cause of infertility in some men is not known. This is called unexplained infertility. What increases the risk? Age. A male's fertility declines with age. Using products that contain nicotine or tobacco. Excessive alcohol use. Obesity. Emotional stress. Exposure of the testicles to heat, such as frequent use of a hot tub or sauna. Using drugs such as anabolic steroids, cocaine, and marijuana. Being exposed to environmental toxins, such as pesticides and lead. What are the signs or symptoms? The main sign of infertility in males is the inability to get a female to conceive. How is this diagnosed? This condition may be diagnosed using: Semen analysis tests to check sperm count, morphology, and motility. Blood tests to check hormone levels. Ultrasound of the scrotum to check for a varicocele or problems with the testicles. Transrectal ultrasound to check the prostate gland and to look for problems with the tubes that transport the semen (seminal vesicles). Taking a small sample of tissue from inside a testicle to look at it under a microscope (biopsy). Blood tests to check for genetic abnormalities (genetic testing). To be diagnosed with infertility, both partners will have a physical exam and tell their health care providers about their medical and sexual histories. Additional tests may be done. How is this treated? Treatment depends on the cause of infertility. Most cases of infertility in males are treated with medicine, surgery, or lifestyle changes. Treatment may include: Taking medicines. Medicines may: ?Correct hormone problems. ?Treat other health conditions. ?Treat infections. ?Treat sexual dysfunction. Having surgery. You may have surgery to: ?Remove blockages in the reproductive tract. ?Correct other structural problems of the reproductive tract. Making lifestyle changes. These changes may include: ?Reducing alcohol use or not drinking alcohol. ?Stopping use of drugs such as anabolic steroids, cocaine, and marijuana. ?Losing weight. ?Stopping smoking. ?Using stress reduction techniques. If other treatments do not work, your health care provider may recommend assisted reproductive technology (ART). ART refers to all treatments and procedures that combine eggs and sperm outside the body to try to help a couple conceive. ART may be effective for infertility caused by sperm problems including low sperm count and low motility. Examples of ART include intrauterine insemination and in vitro fertilization. Follow these instructions at home: Lifestyle If you drink alcohol, limit how much you have to 0 2 drinks a day. Do not use any products that contain nicotine or tobacco. These products include cigarettes, chewing tobacco, and vaping devices, such as e-cigarettes. If you need help quitting, ask your health care provider. Make changes to your diet if needed to lose weight or maintain a healthy weight. Work with your health care provider and a dietitian to set a weight-loss goal that is healthy and reasonable for you. Practice stress reduction techniques that work well for you, such as regular physical activity, meditation, or deep breathing. General instructions Take bmwm-uvm-ktuezus and prescription medicines only as told by your health care provider. Seek support from a counselor or support group to talk about your concerns related to infertility. Couples counseling may be helpful for you and your partner. Keep all follow-up visits. This is important. Contact a health care provider if you: Feel that stress is interfering with your life and relationships. Have side effects from treatments for infertility. Summary Male infertility refers to a male's inability to get a female (get her to conceive) after a year of having sex regularly without using control. To be diagnosed with infertility, both partners will have a physical exam and tell their health care providers about their medical and sexual histories. Seek support from a counselor or support group to talk about your concerns related to infertility. Couples counseling may be helpful for you and your partner. This information is not intended to replace advice given to you by your health care provider. Make sure you discuss any questions you have with your health care provider. Document Revised: 06/07/2022 Document Reviewed: 06/07/2022 [employer] Patient Education 2023 [employer]. Follow Up Care 06/15/2025 14:22:24 With:STARLA OWENS, Timothy Mojica, URL Address: [address] [place], [place] [id number]- When: Unknown [facility] 06-19-2025 Note Patient Education Urology Varicocele A varicocele is a swelling of veins in the scrotum. The scrotum is the sac that contains the testicles. Varicoceles can occur on either side of the scrotum, but they are more common on the left side. They occur most often in teenage boys and young men. In most cases, varicoceles are not a serious problem. They are usually small and painless and do not require treatment. Tests may be done to confirm the diagnosis. Treatment may be needed if: ??? A varicocele is large, causes a lot of pain, or causes pain when exercising. ??? Varicoceles are found on both sides of the scrotum. ??? A varicocele causes a decrease in the size of the testicle in a growing adolescent. ??? A varicocele makes it hard to get someone (infertility). What are the causes? This condition is caused by valves in the veins not working properly. Valves in the veins help to return blood from the scrotum and testicles to the heart. If these valves do not work well, blood flows backward and backs up into the veins, which causes the veins to swell. This is similar to what happens when varicose veins form in the leg. What are the signs or symptoms? Most varicoceles do not cause any symptoms. If symptoms do occur, they may include: ??? Swelling on one side of the scrotum. The swelling may be more obvious when you are standing up. ??? A lumpy feeling in the scrotum. ??? A heavy feeling on one side of the scrotum. ??? A dull ache in the scrotum, especially after exercise or prolonged standing or sitting. ??? Slower growth or reduced size of the testicle on the side of the varicocele. This happens in young males. ??? Infertility. This can occur if the testicle does not grow normally or if the condition causes problems with the sperm, such as a low sperm count or sperm that are not able to reach the egg. How is this diagnosed? This condition is diagnosed based on: ??? Your medical history. ??? A physical exam. Your health care provider may check and feel the scrotum area to check for swollen or enlarged veins. ??? An ultrasound. This may be done to confirm the diagnosis and to help rule out other causes of the swelling. How is this treated? Treatment is usually not needed for this condition. If you have any pain, your provider may give you medicine to help relieve it. Your provider may need to do tests to make sure that your varicocele does not cause problems. If further treatment is needed, you may have one of these procedures: ??? Varicocelectomy. This is surgery to tie off the swollen veins so that the flow of blood goes to other veins instead. ??? Embolization. This procedure uses a soft tube (catheter) to place metal coils or other devices to block the veins. This cuts off the blood flow to the swollen veins. Follow these instructions at home: ??? Take tefm-hay-byzvsvg and prescription medicines only as told by your provider. ??? Wear supportive underwear. ??? Use an athletic supporter when doing sports activities. Contact a health care provider if: ??? Your pain is increasing. ??? You have redness in the affected area. ??? Your testicle is enlarged, swollen, or painful. ??? You have swelling that does not get better when you are lying down. ??? One of your testicles is smaller than the other. ??? You develop swelling in your legs. Get help right away if: ??? You have difficulty breathing. This symptom may be an emergency. Get help right away. Call 911. ??? Do not wait to see if the symptom will go away. ??? Do not drive yourself to the hospital. This information is not intended to replace advice given to you by your health care provider. Make sure you discuss any questions you have with your health care provider. Document Revised: 07/04/2023 Document Reviewed: 07/04/2023 [employer] Patient Education ? 2023 [employer] Male Infertility Male infertility refers to a male's inability to get a female (get her to conceive) after a year of having sex regularly without using control. Both males and females can have fertility problems. What are the causes? This condition may be caused by: ??? Problems with sperm. Infertility can result if a male is: ? Not producing enough sperm (low sperm count). ? Not producing enough sperm of normal size and shape (poor sperm morphology). ? Producing sperm that are not able to reach the egg (poor motility). ??? Problems in a man's reproductive organs, such as: ? Enlarged veins (varicoceles), cysts (spermatoceles), or tumors of the testicles. ? Sexual dysfunction, including not being able to have an erection. ? Injury to the testicles. ? Having had a testicle that did not drop to its location in the scrotum (undescended testicle). ? A defect, such as not having the tubes that carry sperm (vas deferens). ? A lack of certain hormones. ??? Certain medical cond (more content not included)... [facility] 04-08-2025 Hospital Discharg e instructions Follow Up Care 04/08/2025 09:47:30 With:STARLA OWENS, Timothy Mojica, URL Address: [address] [place] [id number] When: Unknown [facility] 02-23-2025 Note Patient Education Urology Erectile Dysfunction Erectile dysfunction (ED) is the inability to get or keep an erection in order to have sexual intercourse. ED is considered a symptom of an underlying disorder and is not considered a disease. ED may include: ??? Inability to get an erection. ??? Lack of enough hardness of the erection to allow penetration. ??? Loss of erection before sex is finished. What are the causes? This condition may be caused by: ??? Physical causes, such as: ? Artery problems. This may include heart disease, high blood pressure, atherosclerosis, and diabetes. ? Hormonal problems, such as low testosterone. ? Obesity. ? Nerve problems. This may include back or pelvic injuries, multiple sclerosis, Parkinson's disease, spinal cord injury, and stroke. ??? Certain medicines, such as: ? Pain relievers. ? Antidepressants. ? Blood pressure medicines and water pills (diuretics). ? Cancer medicines. ? Antihistamines. ? Muscle relaxants. ??? Lifestyle factors, such as: ? Use of drugs such as marijuana, cocaine, or opioids. ? Excessive use of alcohol. ? Smoking. ? Lack of physical activity or exercise. ??? Psychological causes, such as: ? Anxiety or stress. ? Sadness or depression. ? Exhaustion. ? Fear about sexual performance. ? Guilt. What are the signs or symptoms? Symptoms of this condition include: ??? Inability to get an erection. ??? Lack of enough hardness of the erection to allow penetration. ??? Loss of the erection before sex is finished. ??? Sometimes having normal erections, but with frequent unsatisfactory episodes. ??? Low sexual satisfaction in either partner due to erection problems. ??? A curved penis occurring with erection. The curve may cause pain, or the penis may be too curved to allow for intercourse. ??? Never having nighttime or morning erections. How is this diagnosed? This condition is often diagnosed by: ??? Performing a physical exam to find other diseases or specific problems with the penis. ??? Asking you detailed questions about the problem. ??? Doing tests, such as: ? Blood tests to check for diabetes mellitus or high cholesterol, or to measure hormone levels. ? Other tests to check for underlying health conditions. ? An ultrasound exam to check for scarring. ? A test to check blood flow to the penis. ??? Doing a sleep study at home to measure nighttime erections. How is this treated? This condition may be treated by: ??? Medicines, such as: ? Medicine taken by mouth to help you achieve an erection (oral medicine). ? Hormone replacement therapy to replace low testosterone levels. ? Medicine that is injected into the penis. Your health care provider may instruct you how to give yourself these injections at home. ? Medicine that is delivered with a short applicator tube. The tube is inserted into the opening at the tip of the penis, which is the opening of the urethra. A tiny pellet of medicine is put in the urethra. The pellet dissolves and enhances erectile function. This is also called MUSE (medicated urethral system for erections) therapy. ??? Vacuum pump. This is a pump with a ring on it. The pump and ring are placed on the penis and used to create pressure that helps the penis become erect. ??? Penile implant surgery. In this procedure, you may receive: ? An inflatable implant. This consists of cylinders, a pump, and a reservoir. The cylinders can be inflated with a fluid that helps to create an erection, and they can be deflated after intercourse. ? A semi-rigid implant. This consists of two silicone rubber rods. The rods provide some rigidity. They are also flexible, so the penis can both curve downward in its normal position and become straight for sexual intercourse. ??? Blood vessel surgery to improve blood flow to the penis. During this procedure, a blood vessel from a different part of the body is placed into the penis to allow blood to flow around (bypass) damaged or blocked blood vessels. ??? Lifestyle changes, such as exercising more, losing weight, and quitting smoking. Follow these instructions at home: Medicines ??? Take rblg-aue-ouxrebw and prescription medicines only as told by your health care provider. Do not increase the dosage without first discussing it with your health care provider. ??? If you are using self-injections, do injections as directed by your health care provider. Make sure you avoid any veins that are on the surface of the penis. After giving an injection, apply pressure to the injection site for 5 minutes. ??? Talk to your health care provider about how to prevent headaches while taking ED medicines. These medicines may cause a sudden headache due to the increase in blood flow in your body. General instructions ??? Exercise regularly, as directed by your health care provider. Work with your health care provider to lose weight, if needed. ??? Do not u (more content not included)... [facility] 12-09-2024 Hospital Discharg e instructions Patient Education 12/09/2024 12:02:26 Erectile Dysfunction Erectile Dysfunction Erectile dysfunction (ED) is the inability to get or keep an erection in order to have sexual intercourse. ED is considered a symptom of an underlying disorder and is not considered a disease. ED may include: Inability to get an erection. Lack of enough hardness of the erection to allow penetration. Loss of erection before sex is finished. What are the causes? This condition may be caused by: Physical causes, such as: ?Artery problems. This may include heart disease, high blood pressure, atherosclerosis, and diabetes. ?Hormonal problems, such as low testosterone. ?Obesity. ?Nerve problems. This may include back or pelvic injuries, multiple sclerosis, Parkinson's disease, spinal cord injury, and stroke. Certain medicines, such as: ?Pain relievers. ?Antidepressants. ?Blood pressure medicines and water pills (diuretics). ?Cancer medicines. ?Antihistamines. ?Muscle relaxants. Lifestyle factors, such as: ?Use of drugs such as marijuana, cocaine, or opioids. ?Excessive use of alcohol. ?Smoking. ?Lack of physical activity or exercise. Psychological causes, such as: ?Anxiety or stress. ?Sadness or depression. ?Exhaustion. ?Fear about sexual performance. ?Guilt. What are the signs or symptoms? Symptoms of this condition include: Inability to get an erection. Lack of enough hardness of the erection to allow penetration. Loss of the erection before sex is finished. Sometimes having normal erections, but with frequent unsatisfactory episodes. Low sexual satisfaction in either partner due to erection problems. A curved penis occurring with erection. The curve may cause pain, or the penis may be too curved to allow for intercourse. Never having nighttime or morning erections. How is this diagnosed? This condition is often diagnosed by: Performing a physical exam to find other diseases or specific problems with the penis. Asking you detailed questions about the problem. Doing tests, such as: ?Blood tests to check for diabetes mellitus or high cholesterol, or to measure hormone levels. ?Other tests to check for underlying health conditions. ?An ultrasound exam to check for scarring. ?A test to check blood flow to the penis. Doing a sleep study at home to measure nighttime erections. How is this treated? This condition may be treated by: Medicines, such as: ?Medicine taken by mouth to help you achieve an erection (oral medicine). ?Hormone replacement therapy to replace low testosterone levels. ?Medicine that is injected into the penis. Your health care provider may instruct you how to give yourself these injections at home. ?Medicine that is delivered with a short applicator tube. The tube is inserted into the opening at the tip of the penis, which is the opening of the urethra. A tiny pellet of medicine is put in the urethra. The pellet dissolves and enhances erectile function. This is also called MUSE (medicated urethral system for erections) therapy. Vacuum pump. This is a pump with a ring on it. The pump and ring are placed on the penis and used to create pressure that helps the penis become erect. Penile implant surgery. In this procedure, you may receive: ?An inflatable implant. This consists of cylinders, a pump, and a reservoir. The cylinders can be inflated with a fluid that helps to create an erection, and they can be deflated after intercourse. ?A semi-rigid implant. This consists of two silicone rubber rods. The rods provide some rigidity. They are also flexible, so the penis can both curve downward in its normal position and become straight for sexual intercourse. Blood vessel surgery to improve blood flow to the penis. During this procedure, a blood vessel from a different part of the body is placed into the penis to allow blood to flow around (bypass) damaged or blocked blood vessels. Lifestyle changes, such as exercising more, losing weight, and quitting smoking. Follow these instructions at home: Medicines Take vkzq-knn-fejyjtn and prescription medicines only as told by your health care provider. Do not increase the dosage without first discussing it with your health care provider. If you are using self-injections, do injections as directed by your health care provider. Make sure you avoid any veins that are on the surface of the penis. After giving an injection, apply pressure to the injection site for 5 minutes. Talk to your health care provider about how to prevent headaches while taking ED medicines. These medicines may cause a sudden headache due to the increase in blood flow in your body. General instructions Exercise regularly, as directed by your health care provider. Work with your health care provider to lose weight, if needed. Do not use any products that contain nicotine or tobacco. These products include cigarettes, chewing tobacco, and vaping devices, such as e-cigarettes. If you need help quitting, ask your health care provider. Before using a vacuum pump, read the instructions that come with the pump and discuss any questions with your health care provider. Keep all follow-up visits. This is important. Contact a health care provider if: You feel nauseous. You are vomiting. You get sudden headaches while taking ED medicines. You have any concerns about your sexual health. Get help right away if: You are taking oral or injectable medicines and you have an erection that lasts longer than 4 hours. If your health care provider is unavailable, go to the nearest emergency room for evaluation. An erection that lasts much longer than 4 hours can result in permanent damage to your penis. You have severe pain in your groin or abdomen. You develop redness or severe swelling of your penis. You have redness spreading at your groin or lower abdomen. You are unable to urinate. You experience chest pain or a rapid heartbeat (palpitations) after taking oral medicines. These symptoms may represent a serious problem that is an emergency. Do not wait to see if the symptoms will go away. Get medical help right away. Call your local emergency services (911 in the [place] Do not drive yourself to the hospital. Summary Erectile dysfunction (ED) is the inability to get or keep an erection during sexual intercourse. This condition is diagnosed based on a physical exam, your symptoms, and tests to determine the cause. Treatment varies depending on the cause and may include medicines, hormone therapy, surgery, or a vacuum pump. You may need follow-up visits to make sure that you are using your medicines or devices correctly. Get help right away if you are taking or injecting medicines and you have an erection that lasts longer than 4 hours. This information is not intended to replace advice given to you by your health care provider. Make sure you discuss any questions you have with your health care provider. Document Revised: 01/04/2022 Document Reviewed: 01/04/2022 [employer] Patient Education 2023 [employer]. Follow Up Care 12/02/2024 13:08:33 With:JEANIE BARTH, ANGELINA Harris, URL Address: [address] [place] [address] When:Within 3 Month(s) [facility] [employer] 12-09-2024 Note Patient Education Urology Erectile Dysfunction Erectile dysfunction (ED) is the inability to get or keep an erection in order to have sexual intercourse. ED is considered a symptom of an underlying disorder and is not considered a disease. ED may include: ??? Inability to get an erection. ??? Lack of enough hardness of the erection to allow penetration. ??? Loss of erection before sex is finished. What are the causes? This condition may be caused by: ??? Physical causes, such as: ? Artery problems. This may include heart disease, high blood pressure, atherosclerosis, and diabetes. ? Hormonal problems, such as low testosterone. ? Obesity. ? Nerve problems. This may include back or pelvic injuries, multiple sclerosis, Parkinson's disease, spinal cord injury, and stroke. ??? Certain medicines, such as: ? Pain relievers. ? Antidepressants. ? Blood pressure medicines and water pills (diuretics). ? Cancer medicines. ? Antihistamines. ? Muscle relaxants. ??? Lifestyle factors, such as: ? Use of drugs such as marijuana, cocaine, or opioids. ? Excessive use of alcohol. ? Smoking. ? Lack of physical activity or exercise. ??? Psychological causes, such as: ? Anxiety or stress. ? Sadness or depression. ? Exhaustion. ? Fear about sexual performance. ? Guilt. What are the signs or symptoms? Symptoms of this condition include: ??? Inability to get an erection. ??? Lack of enough hardness of the erection to allow penetration. ??? Loss of the erection before sex is finished. ??? Sometimes having normal erections, but with frequent unsatisfactory episodes. ??? Low sexual satisfaction in either partner due to erection problems. ??? A curved penis occurring with erection. The curve may cause pain, or the penis may be too curved to allow for intercourse. ??? Never having nighttime or morning erections. How is this diagnosed? This condition is often diagnosed by: ??? Performing a physical exam to find other diseases or specific problems with the penis. ??? Asking you detailed questions about the problem. ??? Doing tests, such as: ? Blood tests to check for diabetes mellitus or high cholesterol, or to measure hormone levels. ? Other tests to check for underlying health conditions. ? An ultrasound exam to check for scarring. ? A test to check blood flow to the penis. ??? Doing a sleep study at home to measure nighttime erections. How is this treated? This condition may be treated by: ??? Medicines, such as: ? Medicine taken by mouth to help you achieve an erection (oral medicine). ? Hormone replacement therapy to replace low testosterone levels. ? Medicine that is injected into the penis. Your health care provider may instruct you how to give yourself these injections at home. ? Medicine that is delivered with a short applicator tube. The tube is inserted into the opening at the tip of the penis, which is the opening of the urethra. A tiny pellet of medicine is put in the urethra. The pellet dissolves and enhances erectile function. This is also called MUSE (medicated urethral system for erections) therapy. ??? Vacuum pump. This is a pump with a ring on it. The pump and ring are placed on the penis and used to create pressure that helps the penis become erect. ??? Penile implant surgery. In this procedure, you may receive: ? An inflatable implant. This consists of cylinders, a pump, and a reservoir. The cylinders can be inflated with a fluid that helps to create an erection, and they can be deflated after intercourse. ? A semi-rigid implant. This consists of two silicone rubber rods. The rods provide some rigidity. They are also flexible, so the penis can both curve downward in its normal position and become straight for sexual intercourse. ??? Blood vessel surgery to improve blood flow to the penis. During this procedure, a blood vessel from a different part of the body is placed into the penis to allow blood to flow around (bypass) damaged or blocked blood vessels. ??? Lifestyle changes, such as exercising more, losing weight, and quitting smoking. Follow these instructions at home: Medicines ??? Take shxa-fuc-ethivxv and prescription medicines only as told by your health care provider. Do not increase the dosage without first discussing it with your health care provider. ??? If you are using self-injections, do injections as directed by your health care provider. Make sure you avoid any veins that are on the surface of the penis. After giving an injection, apply pressure to the injection site for 5 minutes. ??? Talk to your health care provider about how to prevent headaches while taking ED medicines. These medicines may cause a sudden headache due to the increase in blood flow in your body. General instructions ??? Exercise regularly, as directed by your health care provider. Work with your health care provider to lose weight, if needed. ??? Do not u (more content not included)... [facility] 11-24-2024 Hospital Discharg e instructions Patient Education 11/24/2024 12:40:35 Erectile Dysfunction Erectile Dysfunction Erectile dysfunction (ED) is the inability to get or keep an erection in order to have sexual intercourse. ED is considered a symptom of an underlying disorder and is not considered a disease. ED may include: Inability to get an erection. Lack of enough hardness of the erection to allow penetration. Loss of erection before sex is finished. What are the causes? This condition may be caused by: Physical causes, such as: ?Artery problems. This may include heart disease, high blood pressure, atherosclerosis, and diabetes. ?Hormonal problems, such as low testosterone. ?Obesity. ?Nerve problems. This may include back or pelvic injuries, multiple sclerosis, Parkinson's disease, spinal cord injury, and stroke. Certain medicines, such as: ?Pain relievers. ?Antidepressants. ?Blood pressure medicines and water pills (diuretics). ?Cancer medicines. ?Antihistamines. ?Muscle relaxants. Lifestyle factors, such as: ?Use of drugs such as marijuana, cocaine, or opioids. ?Excessive use of alcohol. ?Smoking. ?Lack of physical activity or exercise. Psychological causes, such as: ?Anxiety or stress. ?Sadness or depression. ?Exhaustion. ?Fear about sexual performance. ?Guilt. What are the signs or symptoms? Symptoms of this condition include: Inability to get an erection. Lack of enough hardness of the erection to allow penetration. Loss of the erection before sex is finished. Sometimes having normal erections, but with frequent unsatisfactory episodes. Low sexual satisfaction in either partner due to erection problems. A curved penis occurring with erection. The curve may cause pain, or the penis may be too curved to allow for intercourse. Never having nighttime or morning erections. How is this diagnosed? This condition is often diagnosed by: Performing a physical exam to find other diseases or specific problems with the penis. Asking you detailed questions about the problem. Doing tests, such as: ?Blood tests to check for diabetes mellitus or high cholesterol, or to measure hormone levels. ?Other tests to check for underlying health conditions. ?An ultrasound exam to check for scarring. ?A test to check blood flow to the penis. Doing a sleep study at home to measure nighttime erections. How is this treated? This condition may be treated by: Medicines, such as: ?Medicine taken by mouth to help you achieve an erection (oral medicine). ?Hormone replacement therapy to replace low testosterone levels. ?Medicine that is injected into the penis. Your health care provider may instruct you how to give yourself these injections at home. ?Medicine that is delivered with a short applicator tube. The tube is inserted into the opening at the tip of the penis, which is the opening of the urethra. A tiny pellet of medicine is put in the urethra. The pellet dissolves and enhances erectile function. This is also called MUSE (medicated urethral system for erections) therapy. Vacuum pump. This is a pump with a ring on it. The pump and ring are placed on the penis and used to create pressure that helps the penis become erect. Penile implant surgery. In this procedure, you may receive: ?An inflatable implant. This consists of cylinders, a pump, and a reservoir. The cylinders can be inflated with a fluid that helps to create an erection, and they can be deflated after intercourse. ?A semi-rigid implant. This consists of two silicone rubber rods. The rods provide some rigidity. They are also flexible, so the penis can both curve downward in its normal position and become straight for sexual intercourse. Blood vessel surgery to improve blood flow to the penis. During this procedure, a blood vessel from a different part of the body is placed into the penis to allow blood to flow around (bypass) damaged or blocked blood vessels. Lifestyle changes, such as exercising more, losing weight, and quitting smoking. Follow these instructions at home: Medicines Take otnd-qsk-szaqwci and prescription medicines only as told by your health care provider. Do not increase the dosage without first discussing it with your health care provider. If you are using self-injections, do injections as directed by your health care provider. Make sure you avoid any veins that are on the surface of the penis. After giving an injection, apply pressure to the injection site for 5 minutes. Talk to your health care provider about how to prevent headaches while taking ED medicines. These medicines may cause a sudden headache due to the increase in blood flow in your body. General instructions Exercise regularly, as directed by your health care provider. Work with your health care provider to lose weight, if needed. Do not use any products that contain nicotine or tobacco. These products include cigarettes, chewing tobacco, and vaping devices, such as e-cigarettes. If you need help quitting, ask your health care provider. Before using a vacuum pump, read the instructions that come with the pump and discuss any questions with your health care provider. Keep all follow-up visits. This is important. Contact a health care provider if: You feel nauseous. You are vomiting. You get sudden headaches while taking ED medicines. You have any concerns about your sexual health. Get help right away if: You are taking oral or injectable medicines and you have an erection that lasts longer than 4 hours. If your health care provider is unavailable, go to the nearest emergency room for evaluation. An erection that lasts much longer than 4 hours can result in permanent damage to your penis. You have severe pain in your groin or abdomen. You develop redness or severe swelling of your penis. You have redness spreading at your groin or lower abdomen. You are unable to urinate. You experience chest pain or a rapid heartbeat (palpitations) after taking oral medicines. These symptoms may represent a serious problem that is an emergency. Do not wait to see if the symptoms will go away. Get medical help right away. Call your local emergency services (911 in the [place] Do not drive yourself to the hospital. Summary Erectile dysfunction (ED) is the inability to get or keep an erection during sexual intercourse. This condition is diagnosed based on a physical exam, your symptoms, and tests to determine the cause. Treatment varies depending on the cause and may include medicines, hormone therapy, surgery, or a vacuum pump. You may need follow-up visits to make sure that you are using your medicines or devices correctly. Get help right away if you are taking or injecting medicines and you have an erection that lasts longer than 4 hours. This information is not intended to replace advice given to you by your health care provider. Make sure you discuss any questions you have with your health care provider. Document Revised: 01/04/2022 Document Reviewed: 01/04/2022 [employer] Patient Education 2023 [employer]. Follow Up Care 11/21/2024 09:56:45 With:JEANIE BARTH, ANGELINA Harris, URL Address: [address] [place] [address]. [place] [address] When:Within 3 Month(s) [facility] Note Patient Education Urology Erectile Dysfunction Erectile dysfunction (ED) is the inability to get or keep an erection in order to have sexual intercourse. ED is considered a symptom of an underlying disorder and is not considered a disease. ED may include: ??? Inability to get an erection. ??? Lack of enough hardness of the erection to allow penetration. ??? Loss of erection before sex is finished. What are the causes? This condition may be caused by: ??? Physical causes, such as: ? Artery problems. This may include heart disease, high blood pressure, atherosclerosis, and diabetes. ? Hormonal problems, such as low testosterone. ? Obesity. ? Nerve problems. This may include back or pelvic injuries, multiple sclerosis, Parkinson's disease, spinal cord injury, and stroke. ??? Certain medicines, such as: ? Pain relievers. ? Antidepressants. ? Blood pressure medicines and water pills (diuretics). ? Cancer medicines. ? Antihistamines. ? Muscle relaxants. ??? Lifestyle factors, such as: ? Use of drugs such as marijuana, cocaine, or opioids. ? Excessive use of alcohol. ? Smoking. ? Lack of physical activity or exercise. ??? Psychological causes, such as: ? Anxiety or stress. ? Sadness or depression. ? Exhaustion. ? Fear about sexual performance. ? Guilt. What are the signs or symptoms? Symptoms of this condition include: ??? Inability to get an erection. ??? Lack of enough hardness of the erection to allow penetration. ??? Loss of the erection before sex is finished. ??? Sometimes having normal erections, but with frequent unsatisfactory episodes. ??? Low sexual satisfaction in either partner due to erection problems. ??? A curved penis occurring with erection. The curve may cause pain, or the penis may be too curved to allow for intercourse. ??? Never having nighttime or morning erections. How is this diagnosed? This condition is often diagnosed by: ??? Performing a physical exam to find other diseases or specific problems with the penis. ??? Asking you detailed questions about the problem. ??? Doing tests, such as: ? Blood tests to check for diabetes mellitus or high cholesterol, or to measure hormone levels. ? Other tests to check for underlying health conditions. ? An ultrasound exam to check for scarring. ? A test to check blood flow to the penis. ??? Doing a sleep study at home to measure nighttime erections. How is this treated? This condition may be treated by: ??? Medicines, such as: ? Medicine taken by mouth to help you achieve an erection (oral medicine). ? Hormone replacement therapy to replace low testosterone levels. ? Medicine that is injected into the penis. Your health care provider may instruct you how to give yourself these injections at home. ? Medicine that is delivered with a short applicator tube. The tube is inserted into the opening at the tip of the penis, which is the opening of the urethra. A tiny pellet of medicine is put in the urethra. The pellet dissolves and enhances erectile function. This is also called MUSE (medicated urethral system for erections) therapy. ??? Vacuum pump. This is a pump with a ring on it. The pump and ring are placed on the penis and used to create pressure that helps the penis become erect. ??? Penile implant surgery. In this procedure, you may receive: ? An inflatable implant. This consists of cylinders, a pump, and a reservoir. The cylinders can be inflated with a fluid that helps to create an erection, and they can be deflated after intercourse. ? A semi-rigid implant. This consists of two silicone rubber rods. The rods provide some rigidity. They are also flexible, so the penis can both curve downward in its normal position and become straight for sexual intercourse. ??? Blood vessel surgery to improve blood flow to the penis. During this procedure, a blood vessel from a different part of the body is placed into the penis to allow blood to flow around (bypass) damaged or blocked blood vessels. ??? Lifestyle changes, such as exercising more, losing weight, and quitting smoking. Follow these instructions at home: Medicines ??? Take gwkz-sxc-xveaiut and prescription medicines only as told by your health care provider. Do not increase the dosage without first discussing it with your health care provider. ??? If you are using self-injections, do injections as directed by your health care provider. Make sure you avoid any veins that are on the surface of the penis. After giving an injection, apply pressure to the injection site for 5 minutes. ??? Talk to your health care provider about how to prevent headaches while taking ED medicines. These medicines may cause a sudden headache due to the increase in blood flow in your body. General instructions ??? Exercise regularly, as directed by your health care provider. Work with your health care provider to lose weight, if needed. ??? Do not u (more content not included)... [facility] 08-20-2024 Miscellaneous Notes Formattin g of this note might be different from the original. Contract: 210 Pt needs to cancel today's 9am appt Unable to reach office by phone Answering service unable to cancel appt in [employer] Pt will call back to reschedule documented in this encounter [facility] 08-20-2024 Telephone encount er Note Contract: 210 Pt needs to cancel today's 9am appt Unable to reach office by phone Answering service unable to cancel appt in [facility] Pt will call back to reschedule [facility] 06-19-2024 Hospital Discharg e instructions Patient Education 06/19/2024 11:24:44 Erectile Dysfunction Erectile Dysfunction Erectile dysfunction (ED) is the inability to get or keep an erection in order to have sexual intercourse. ED is considered a symptom of an underlying disorder and is not considered a disease. ED may include: Inability to get an erection. Lack of enough hardness of the erection to allow penetration. Loss of erection before sex is finished. What are the causes? This condition may be caused by: Physical causes, such as: ?Artery problems. This may include heart disease, high blood pressure, atherosclerosis, and diabetes. ?Hormonal problems, such as low testosterone. ?Obesity. ?Nerve problems. This may include back or pelvic injuries, multiple sclerosis, Parkinson's disease, spinal cord injury, and stroke. Certain medicines, such as: ?Pain relievers. ?Antidepressants. ?Blood pressure medicines and water pills (diuretics). ?Cancer medicines. ?Antihistamines. ?Muscle relaxants. Lifestyle factors, such as: ?Use of drugs such as marijuana, cocaine, or opioids. ?Excessive use of alcohol. ?Smoking. ?Lack of physical activity or exercise. Psychological causes, such as: ?Anxiety or stress. ?Sadness or depression. ?Exhaustion. ?Fear about sexual performance. ?Guilt. What are the signs or symptoms? Symptoms of this condition include: Inability to get an erection. Lack of enough hardness of the erection to allow penetration. Loss of the erection before sex is finished. Sometimes having normal erections, but with frequent unsatisfactory episodes. Low sexual satisfaction in either partner due to erection problems. A curved penis occurring with erection. The curve may cause pain, or the penis may be too curved to allow for intercourse. Never having nighttime or morning erections. How is this diagnosed? This condition is often diagnosed by: Performing a physical exam to find other diseases or specific problems with the penis. Asking you detailed questions about the problem. Doing tests, such as: ?Blood tests to check for diabetes mellitus or high cholesterol, or to measure hormone levels. ?Other tests to check for underlying health conditions. ?An ultrasound exam to check for scarring. ?A test to check blood flow to the penis. Doing a sleep study at home to measure nighttime erections. How is this treated? This condition may be treated by: Medicines, such as: ?Medicine taken by mouth to help you achieve an erection (oral medicine). ?Hormone replacement therapy to replace low testosterone levels. ?Medicine that is injected into the penis. Your health care provider may instruct you how to give yourself these injections at home. ?Medicine that is delivered with a short applicator tube. The tube is inserted into the opening at the tip of the penis, which is the opening of the urethra. A tiny pellet of medicine is put in the urethra. The pellet dissolves and enhances erectile function. This is also called MUSE (medicated urethral system for erections) therapy. Vacuum pump. This is a pump with a ring on it. The pump and ring are placed on the penis and used to create pressure that helps the penis become erect. Penile implant surgery. In this procedure, you may receive: ?An inflatable implant. This consists of cylinders, a pump, and a reservoir. The cylinders can be inflated with a fluid that helps to create an erection, and they can be deflated after intercourse. ?A semi-rigid implant. This consists of two silicone rubber rods. The rods provide some rigidity. They are also flexible, so the penis can both curve downward in its normal position and become straight for sexual intercourse. Blood vessel surgery to improve blood flow to the penis. During this procedure, a blood vessel from a different part of the body is placed into the penis to allow blood to flow around (bypass) damaged or blocked blood vessels. Lifestyle changes, such as exercising more, losing weight, and quitting smoking. Follow these instructions at home: Medicines Take wnoe-bag-fayetjn and prescription medicines only as told by your health care provider. Do not increase the dosage without first discussing it with your health care provider. If you are using self-injections, do injections as directed by your health care provider. Make sure you avoid any veins that are on the surface of the penis. After giving an injection, apply pressure to the injection site for 5 minutes. Talk to your health care provider about how to prevent headaches while taking ED medicines. These medicines may cause a sudden headache due to the increase in blood flow in your body. General instructions Exercise regularly, as directed by your health care provider. Work with your health care provider to lose weight, if needed. Do not use any products that contain nicotine or tobacco. These products include cigarettes, chewing tobacco, and vaping devices, such as e-cigarettes. If you need help quitting, ask your health care provider. Before using a vacuum pump, read the instructions that come with the pump and discuss any questions with your health care provider. Keep all follow-up visits. This is important. Contact a health care provider if: You feel nauseous. You are vomiting. You get sudden headaches while taking ED medicines. You have any concerns about your sexual health. Get help right away if: You are taking oral or injectable medicines and you have an erection that lasts longer than 4 hours. If your health care provider is unavailable, go to the nearest emergency room for evaluation. An erection that lasts much longer than 4 hours can result in permanent damage to your penis. You have severe pain in your groin or abdomen. You develop redness or severe swelling of your penis. You have redness spreading at your groin or lower abdomen. You are unable to urinate. You experience chest pain or a rapid heartbeat (palpitations) after taking oral medicines. These symptoms may represent a serious problem that is an emergency. Do not wait to see if the symptoms will go away. Get medical help right away. Call your local emergency services (911 in the [place] Do not drive yourself to the hospital. Summary Erectile dysfunction (ED) is the inability to get or keep an erection during sexual intercourse. This condition is diagnosed based on a physical exam, your symptoms, and tests to determine the cause. Treatment varies depending on the cause and may include medicines, hormone therapy, surgery, or a vacuum pump. You may need follow-up visits to make sure that you are using your medicines or devices correctly. Get help right away if you are taking or injecting medicines and you have an erection that lasts longer than 4 hours. This information is not intended to replace advice given to you by your health care provider. Make sure you discuss any questions you have with your health care provider. Document Revised: 01/04/2022 Document Reviewed: 01/04/2022 [employer] Patient Education 2022 [employer]. Follow Up Care 04/25/2024 11:11:16 With:JEANIE BARTH, ANGELINA Harris, URL Address: [address] [address] [phone] When: only if needed [facility] 03-24-2021 Note [id number] Evaluation + Plan note No data available for this section [facility] Evaluation + Plan note Future Appointments Appointment Date:02/23/2025 09:40:00 AM Scheduled Provider:ANGELINA WARE PA-C Location:[facility] Appointment Type:URO Office Visit [facility] Evaluation + Plan note Future Appointments Appointment Date:06/19/2025 08:30:00 AM Scheduled Provider:Timothy HADDAD MD Location:[facility] Appointment Type:URO Office Visit Appointment Date:02/23/2026 09:40:00 AM Scheduled Provider:ANGELINA WARE PA-C Location:[facility] Appointment Type:URO Office Visit [facility] Evaluation + Plan note Future Appointments Appointment Date:12/14/2025 09:45:00 AM Scheduled Provider:Timothy HADDAD MD Location:[facility] Appointment Type:URO Office Visit [facility] Instructions Not on filedocumente d in this encounter [facility] No data available for this section [facility] Summary Purpose Family History No Family History Records FoundNo Family History Records Found No data available for this section No data available for this section No data available for this section No Family History Records Found No data available for this section No data available for this section No Family History Records Found Advance Directives No Advanced Directives Records FoundNo Advanced Directives Records FoundNo Advanced Directives Records FoundNo Advanced Directives Records Found Additional Source Comments (unrecognized sect ion and content) No Status Records FoundNo Status Records FoundNo Status Records FoundNo Status Records Found INFORMATION SOURCE (unrecogn ized section and content) DATE CREATED AUTHOR 04/26/2021 [facility] DATE CREATED AUTHOR AUTHOR'S ORGANIZ ATION 04/24/2024 [facility] DATE CREATED AUTHOR AUTHOR'S ORGANIZ ATION 06/07/2025 [facility] DATE CREATED AUTHOR AUTHOR'S ORGANIZ ATION 06/21/2025 [facility] Patient Care team informatio n (unrecognized section and content) Automotive Specialty Technician Relationship Specialty Start Date End Date Teddy Gray PA-C [address] [place] [address] PCP - General Physician Refinery Operator [employer] 01/03/23 Reason for Visit (unrecogniz ed section and content) Reason Onset Date Comments Cancel Appointment 08/20/2024 FOR RECORDS PERTAINING TO PATIENTS WHO ARE OR HAVE BEEN ENROLLED IN A CHEMICAL DEPENDENCY/SUBSTANCEABUSE PROGRAM, SOME INFORMATION MAY BE OMITTED. This clinical summary was aggregated from multiple sources. Caution should be exercised in using it in the provision of clinical care. This summary normalizes information from multiple sources, and as a consequence, information in this document may materially change the coding, format and clinical context of patient data. In addition, data may be omitted in some cases. CLINICAL DECISIONS SHOULD BE BASED ON THE PRIMARY CLINICAL RECORDS. [facility]. provides no warranty or guarantee of the accuracy or completeness of information in this document.
== END 2025-06-23 08:13 | disposition home or self-care (01) ==
LOC: US 08:13
PROVIDERS: PCP Internal Medicine; Visit Provider Urology
DX: N43.40 Spermatocele of epididymis, unspecified (principal); I86.1 Scrotal varices; N50.3 Cyst of epididymis
CPT/HCPCS: 76870